=== PATIENT | female | born 2000 | race African-American/Black ===

== ENCOUNTER 2021-04-24 23:24 | Emergency (ER) | payer OTHER ==
[~2021-04-24] VITALS: Ht 170.2 cm; Wt 95.5 kg
--- NOTE | 2021-04-24 23:39 | PHYS DOC ---
General Adult EDM: Chief Complaint: SHOULDER INJURY HPI: HPI: ".. I was running and tripped on my open toed sandals... And fell and right shoulder hit the bleachers..." Patient is a 20 year old female who presents with above hx trip and fall with complaints of right shoulder clavicle injury. Patient does have deltoid sensation. Distal sensation and function hand is equal to left hand. Patient is right-hand dominant. Pain with any movement to right shoulder . No other injury reported in fall. Patient is right-hand dominant. Patient normally hea lthy. Review of Systems: Review of Systems: Constitutional: Denies fever or chills Eyes: Denies change in visual acuity HENT: Denies nasal congestion or sore throat Respiratory: Denies cough or shortness of breath Cardiovascular: Denies chest pain or edema GI: Denies abdominal pain, nausea, vomiting, bloody stools or diarrhea : Denies dysuria Musculoskeletal: Complaints of Rt. shoulder pain. Integument: Denies rash Neurologic: Denies headache, focal weakness or sensory changes Endocrine: Denies polyuria or polydipsia Lymphatic: Denies swollen glands Psychiatric: Denies depression or anxiety Family History: Family History: Noncontributory to presentation Current Medications: Current Meds: See nursing for home meds Allergies: Allergies: No known drug allergies Physical Exam: PE: Constitutional: Well developed, well nourished, moderate acute distress, non- toxic appearance. [] HENT: Normocephalic, atraumatic, bilateral external ears normal, oropharynx moist, no oral exudates, nose normal. [] Eyes: PERRLA, EOMI, conjunctiva normal, no discharge. [] Neck: Normal range of motion, no tenderness, supple, no stridor. [] Cardiovascular:Heart rate regular rhythm, no murmur [] Lungs & Thorax: Bilateral breath sounds equal apex auscultation [.] The right upper chest wall tender Abdomen: Bowel sounds normal, soft, no tenderness, no masses, no pulsatile masses. [] Skin: Warm, dry, no erythema, no rash. [] Back: No tenderness, no CVA tenderness. [] Extremities: No tenderness, no cyanosis, no clubbing, ROM intact, no edema. Except findings in right shoulder as per HPI Neurologic: Alert and oriented X 3, moves extremities on request, has distal sensory, no focal deficits noted. [] Psychologic: Affect anxious, judgement normal, mood normal. [] EKG: EKG: [] Radiology/Procedures: Radiology/Procedures: My interpretation of right shoulder film shows no obvious displaced fracture or dislocation. Heart Score: C/O Chest Pain: N/A Risk Factors: Risk Factors: DM, Current or recent (<one month) smoker, HTN, HLP, family history of CAD, obesity. Risk Scores: Score 0 - 3: 2.5% MACE over next 6 weeks - Discharge Home Score 4 - 6: 20.3% MACE over next 6 weeks - Admit for Clinical Observation Score 7 - 10: 72.7% MACE over next 6 weeks - Early Invasive Strategies Course & Med Decision Making: Course & Med Decision Making Pertinent Labs and Imaging studies reviewed. (See chart for details) Ice packs as needed take Tylenol and ibuprofen for pain. Wear sling. Follow-up with Ortho. [phone] Follow-up primary. Distal neurovascular intact after application of sling. Impression: 1. Trip and Fall 2. Rt. shoulder Contusion [] Dragon Disclaimer: Dragon Disclaimer: This electronic medical record was generated, in whole or in part, using a voice recognition dictation system. Departure Departure: Referrals: PCP,NO (PCP) Jc Disclaimer This chart was dictated in whole or in part using Voice Recognition software in a busy, high-work load, and often noisy Emergency Department environment. It may contain unintended and wholly unrecognized errors or omissions. ENOC KAPLAN MD Apr 24, 2021 23:39
[2021-04-24 23:52] VITALS: BP 113/68
[2021-04-25] MEDS ORDERED: oxyCODONE/APAP 5/325 1 TAB TABLET PO ONE
[2021-04-25 01:04] LABS: BARBITURATES NEG (NEG); BENZODIAZEPINES NEG (NEG); CANNABINOIDS POS (NEG); COCAINE NEG (NEG); METHADONE NEG (NEG); OPIATES NEG (NEG); PHENCYCLIDINE NEG (NEG)
[2021-04-25 01:07] LABS: AMPHETAMINE/METHAMPHETAMINE NEG (NEG)
[2021-04-25 01:16] LABS: AMORPHOUS SEDIMENT,UR PRESENT /HPF; BACTERIA,URINE 0 /HPF (0-FEW); BILIRUBIN,URINE NEG (NEG); CLARITY,URINE HAZY; COLOR,URINE YELLOW; GLUCOSE,URINE NEG (NEG); NITRITE,URINE NEG (NEG); RBC,URINE 0 /HPF (0-2); SQUAMOUS EPITHELIAL CELL,UR MOD /LPF; WBC,URINE OCC /HPF (0-4)
--- NOTE | 2021-04-25 03:40 | RAD ---
Chest AP only at 12:30 AM: Reason for examination: Fell with right shoulder and chest pain. The heart size is normal. Mediastinum is unremarkable. Lung hernandez are clear. No acute bony abnormali ties are seen. Impression: No acute cardiopulmonary disease. Right shoulder 3 views: No acute fracture or dislocation is seen. The bone density is normal. Joint spaces are maintained. IMPRESSION: No acute abnormality seen at the right shoulder. Electronically signed by: Eugenia Kahn MD (04/25/2021 3:38 AM) [facility]ERYL
== END 2021-04-25 02:15 | disposition home or self-care (01) ==
LOC: ER 23:24
DX: S40.011A Contusion of right shoulder, initial encounter (principal); W01.0XXA Fall on same level from slipping, tripping and stumbling without subsequent striking against object, initial encounter; Y93.89 Activity, other specified; Y92.89 Other specified places as the place of occurrence of the external cause; Y99.8 Other external cause status
CPT/HCPCS: 29240; 36415; 71045; 73030; 80307; 81001; 81025; 99284